=== PATIENT | female | born 1985 | race American Indian/Alaskan Native ===

== ENCOUNTER 2017-11-22 18:16 | Emergency (ER) | payer OTHER ==
[2017-11-22 18:26] VITALS: BP 120/80
--- NOTE | 2017-11-22 20:58 | Emergency Department Report ---
- General Chief complaint: Skin/Abscess/Foreign Body Stated complaint: EYE PAIN Time Seen by Provider: 11/22/17 19:55 Source: patient Mode of arrival: Ambulatory Limitations: No Limitations - History of Present Illness Initial comments: 32-year-old -[place] female comes in for reoccurrence diet on bilateral eyelids. Patient reports that she's had multiple surgeries and creams for her eyelids. Patient comes in to find the etiology of why she keeps getting them. Patient reports that she is followed by an law researcher in [place]. Patient reports she has a latex allergy currently takes no medications on a daily basis. -: month(s) Tetanus Up to Date: yes Location: face (bilateral upper eyelid and left lower eyelid) Severity: severe Severity scale (0 -10): 9 Quality: burning, aching, sharp Consistency: constant Improves with: medication, other (surgery) Worsens with: palpation Context: none Associated symptoms: denies other symptoms Treatments Prior to Arrival: none, attempted to drain pus at - Related Data Previous Rx's Medication Instructions Recorded Last Taken Type Cephalexin [Keflex] 500 mg PO BID 7 Days #14 capsule 11/22/17 Unknown Rx Polymyxin B Sulf/Trimethoprim 1 drop OP Q3HR 7 Days #1 bottle 11/22/17 Unknown Rx [Polytrim Eye Drops [id number]/0.1%] Allergies Allergy/AdvReac Type Severity Reaction Status Date / Time latex Allergy Unknown Verified 11/22/17 18:26 Abscess Boil HPI - HPI Chief Complaint: Skin/Abscess/Foreign Body Stated Complaint: EYE PAIN Time Seen by Provider: 11/22/17 19:55 Home Medications: Previous Rx's Medication Instructions Recorded Last Taken Type Cephalexin [Keflex] 500 mg PO BID 7 Days #14 capsule 11/22/17 Unknown Rx Polymyxin B Sulf/Trimethoprim 1 drop OP Q3HR 7 Days #1 bottle 11/22/17 Unknown Rx [Polytrim Eye Drops [id number]/0.1%] Allergies/Adverse Reactions: Allergies Allergy/AdvReac Type Severity Reaction Status Date / Time latex Allergy Unknown Verified 11/22/17 18:26 ED Review of Systems ROS: Stated complaint: EYE PAIN Other details as noted in HPI Eyes: eye pain, eye discharge (eyelid) Respiratory: denies: cough, shortness of breath, wheezing Cardiovascular: denies: chest pain, palpitations ED Past Medical Hx - Past Medical History Previous Medical History?: No - Surgical History Additional Surgical History: LEP procedure - Social History Smoking Status: Current Some Day Smoker Substance Use Type: None - Medications Home Medications: Home Medications Medication Instructions Recorded Confirmed Last Taken Type Cephalexin [Keflex] 500 mg PO BID 7 Days #14 capsule 11/22/17 Unknown Rx Polymyxin B Sulf/Trimethoprim 1 drop OP Q3HR 7 Days #1 bottle 11/22/17 Unknown Rx [Polytrim Eye Drops [id number]/0.1%] ED Physical Exam - General Limitations: No Limitations General appearance: alert, in no apparent distress - Head Head exam: Present: atraumatic, normocephalic - Eye Eye exam: Present: PERRL, EOMI, other (swelling tenderness to the left eyelid and lower eyelid and mouth swelling this to the right upper eyelid) Pupils: Present: normal accommodation - ENT ENT exam: Present: mucous membranes moist - Neck Neck exam: Absent: lymphadenopathy - Neurological Exam Neurological exam: Present: alert, oriented X3 - Psychiatric Psychiatric exam: Present: normal affect, normal mood - Skin Skin exam: Present: warm, dry, intact, normal color. Absent: rash ED Course Vital Signs 11/22/17 18:23 Temperature 98.6 F Pulse Rate 73 Respiratory 16 Rate Blood Pressure 120/80 O2 Sat by Pulse 100 Oximetry ED Medical Decision Making - Medical Decision Making Patient has been evaluated by this provider fast track. We will place patient on oral antibiotics as well as antibiotics for the eye. Discussed the patient she needs to follow-up with ophthalmology in the next 2-3 days. I have listed several providers for her convenience. Encourage her to continue with the warm compresses at least 4 times a day. Critical care attestation.: If time is entered above; I have spent that time in minutes in the direct care of this critically ill patient, excluding procedure time. ED Disposition Clinical Impression: Hordeolum externum (stye) Qualifiers: Laterality: left Eyelid: upper Qualified Code(s): H00.014 - Hordeolum externum left upper eyelid Disposition: DC-01 TO HOME OR SELFCARE Is pt being admited?: No Does the pt Need Aspirin: No Condition: Stable Instructions: Stye (ED) Additional Instructions: Please complete antibiotics as prescribed. Please follow up with ophthalmology. Continue with warm compresses every 6 hours for 15 minutes. Prescriptions: Cephalexin [Keflex] 500 mg PO BID 7 Days #14 capsule Polymyxin B Sulf/Trimethoprim [Polytrim Eye Drops [id number]/0.1%] 1 drop OP Q3HR 7 Days #1 bottle Referrals: ROLAND MARES [Other] - 3-5 Days CASSIUS ARANDA MD [Staff Physician] - 3-5 Days [facility] [Provider Group] - 3-5 Days [facility] [Provider Group] - 3-5 Days Forms: Work/School Release Form(ED), Accompanied Note
== END 2017-11-22 21:45 | disposition home or self-care (01) ==
LOC: ED 18:16
DX: H00.014 Hordeolum externum left upper eyelid (principal); H57.8 Other specified disorders of eye and adnexa; F17.200 Nicotine dependence, unspecified, uncomplicated; Z91.040 Latex allergy status; Z98.890 Other specified postprocedural states
CPT/HCPCS: 99282